=== PATIENT | female | born 1940 | race Caucasian/White ===

== ENCOUNTER 2018-06-17 16:18 | Emergency (ER) | payer MEDICARE, SELFPAY ==
[2018-06-17 16:22] VITALS: BP 141/87; PULSE 93; RESP 18; TEMP 36.5; O2SAT 94; BMI 20.2
[2018-06-17 18:06] LABS: Add Manual Diff / Slide Review NO; Basophils Percent Auto 0.3 % (0-2); Eosinophils Percent Auto 1.4 % (2-4); Hemoglobin 13.6 g/dL (12.0-16.0); Lymphocytes Percent Auto 26.8 % (25-40); Mean Corpuscular HGB Conc 33.9 % (30-36); Mean Corpuscular Hemoglobin 29.5 PG (26-34); Mean Corpuscular Volume 86.9 fL (80-100); Monocytes Percent Auto 7.6 % (3-14); Neutrophils Absolute Auto 3600 /uL (1500-7000); Neutrophils Percent Auto 63.9 % (50-75); Platelet Count 236 X10^3/uL (150-400); Red Cell Distribution Width 13.5 % (11.6-14.8); White Blood Cell Count 5.7 X10^3/uL (4.5-11.0)
--- NOTE | 2018-06-17 18:16 | ED_ITS ---
HPI - Abdominal Pain General Chief Complaint: Abdominal Pain Stated Complaint: Stated bleeding Time Seen by Provider: 06/17/18 17:45 Source: patient and family Mode of arrival: ambulatory Limitations: no limitations History of Present Illness HPI narrative: Patient is a 78-year-old female here with family for evaluation of ?leaking fluid. Patient states that this morning she started leaking fluid. At 1st she says that was from her ?bottom upon further questioning the patient's thinks that is coming from her vagina. She has had no change in her urine. No fevers. No abdominal pain. She had a hysterectomy done approximately 40 years ago. Does not have any pain. Has never had anything like this before. Has no symptoms consistent with stress incontinence. She states that the fluid is clear. Not bloody. Related Data Home Medications Medication Instructions Recorded Confirmed aspirin 81 mg PO DAILY 06/17/18 06/17/18 atenolol 25 mg PO DAILY 06/17/18 06/17/18 atorvastatin 5 mg PO DAILY 06/17/18 06/17/18 levothyroxine 50 mcg PO DAILY 06/17/18 06/17/18 losartan-hydrochlorothiazide 1 tab PO DAILY 06/17/18 06/17/18 omeprazole 20 mg PO QPM 06/17/18 06/17/18 Allergies Allergy/AdvReac Type Severity Reaction Status Date / Time No Known Drug Allergies Allergy Verified 06/17/18 16:21 Review of Systems Constitutional Denies fatigue ENT Ears, Nose, Mouth, and Throat: Denies dizziness Cardiovascular Denies chest pain and Denies dyspnea Respiratory Denies dyspnea Gastrointestinal Gastrointestinal: Denies abdominal pain Genitourinary Denies dysuria, Denies pelvic pain, Denies flank pain and Reports vaginal discharge Musculoskeletal Denies myalgias and Denies arthralgias Integumentary/Breasts Denies lesions and Denies rash Neurologic Denies behavioral changes, Denies confusion and Denies dizziness Psychiatric Denies behavioral changes and Denies confusion Endocrine Denies fatigue Hematologic/Lymphatic Denies easy bleeding and Denies easy bruising PFSH Medical History H/O: hysterectomy (Acute) History of hysterectomy (Acute) Hypertension (Acute) Hypothyroid (Acute) Social History Smoking Status: Never smoker Exam Initial Vital Signs Initial Vital Signs: Vital Signs Temperature 97.7 F 06/17/18 16:22 Pulse Rate 93 H 12/21/18 16:22 Respiratory Rate 18 06/17/18 16:22 Blood Pressure 141/87 H 06/17/18 16:22 Pulse Oximetry 94 06/17/18 16:22 Const General: cooperative, healthy appearing, comfortable, well developed, well groomed and No acute distress Orientation: alert, awake and oriented x3 HENMT Head: normal to inspection and normocephalic Resp Effort & Inspection: normal respiratory effort Auscultation: clear to auscultation bilaterally Cardio Rate: regular rate Rhythm: regular rhythm Pulses: radial pulses present GI Inspection: non-distended Palpation: soft, No firm and No tender Rectal Exam: visual inspection normal, normal sphincter tone, No hemorrhoids and No tenderness Other: Normal external female genitalia Pelvic exam shows no dehiscence of the suture line in the posterior vaginal vault. No fluid. No bleeding. Skin Lesions: no lesions Rashes: no rashes Neuro General: alert, awake and oriented x3 Extrem General: normal to inspection and capillary refill normal Psych Appearance: grossly normal and well kempt Course Orders Ordered: ED Orders 06/17/18 17:50 Complete Blood Count AUTO DIFF Stat Comprehensive Metabolic Panel Stat Lipase Stat Vital Signs - 8 hr 06/17/18 16:22 Temperature 97.7 F Pulse Rate 93 H Respiratory Rate 18 Blood Pressure 141/87 H Pulse Oximetry 94 MDM - Abdominal Pain Lab Data Attestation: I reviewed the patient's lab results. Result diagrams: 06/17/18 17:50 06/17/18 17:50 Lab Results 06/17/18 06/17/18 06/17/18 Range/Units 17:50 17:50 Unknown WBC 5.7 (4.5-11.0) X10^3/uL RBC 4.60 (4.0-5.2) X10^6/uL Hgb 13.6 (12.0-16.0) g/dL Hct 40.0 (36-46) % MCV 86.9 (80-100) fL MCH 29.5 (26-34) PG MCHC 33.9 (30-36) % RDW 13.5 (11.6-14.8) % Plt Count 236 (150-400) X10^3/uL Neut % (Auto) 63.9 (50-75) % Lymph % (Auto) 26.8 (25-40) % Cole % (Auto) 7.6 (3-14) % Eos % (Auto) 1.4 L (2-4) % Baso % (Auto) 0.3 (0-2) % Neut # (Auto) 3600 (4048-7775) /uL Sodium 145 (137-145) mmol/L Potassium 3.3 L (3.4-5.1) mmol/L Chloride 108 H (98-107) mmol/L Carbon Dioxide 27 (22-32) mmol/L BUN 19 H (7-17) mg/dL Creatinine 0.70 (0.52-1.04) mg/dL Estimated GFR > 60.0 (>60) mL/min BUN/Creatinine Ratio 27.1 H (6-22) Glucose 105 (80-110) mg/dL Calcium 9.7 (8.4-10.2) mg/dL Total Bilirubin 0.7 (0.2-1.3) mg/dL AST 33 (14-36) IU/L ALT 27 (9-52) IU/L Alkaline Phosphatase 97 (38-126) U/L Total Protein 7.2 (6.3-8.2) g/dL Albumin 4.1 (3.5-5.0) g/dL Globulin 3.1 (1.7-4.1) g/dL Albumin/Globulin Ratio 1.3 (1.0-2.8) Lipase 101 (23-300) U/L Urine Color Yellow Urine Appearance Clear Urine pH 7.5 (4.5-8.0) Ur Specific Roosevelt 1.020 (1.000-1.035) Urine Protein Negative (Negative) Urine Glucose (UA) Negative (Normal) g/dL Urine Ketones Negative (NEGATIVE) Urine Occult Blood Trace-intact (Negative) Urine Nitrate Negative (Negative) Urine Bilirubin Negative (NEGATIVE) Urine Urobilinogen 0.2 (0.2) E.U./dL Ur Leukocyte Esterase Negative (NEGATIVE) Urine RBC None seen (0-5/HPF) Urine WBC None seen (0-5/HPF) Urine Bacteria None seen (None) Ur Culture Indicated? Not Reportable Micro UA Comment Not Reportable MDM Narrative Medical decision making narrative: Patient with normal exam here in the emergency department. The symptoms do not appear to be coming from the vagina. There is no dehiscence in the surgical wound from her hysterectomy many years ago. No abnormal findings on the rectal exam. Urine shows no signs of urinary tract infection. Has no abdominal pain. Unsure as the exact etiology of the fluid. I do not feel like there is an emergent surgical condition. Will hold on CT scan for now. Patient was given return precautions. She and family both expressed understanding and agreement plan. Discharge Plan Departure Patient Disposition: Home Clinical Impression: Clear vaginal discharge Discharge Date/Time: 06/17/18 20:34 Interventions: ED Discharge Assessment Last Done: 06/17/18 20:33 Activity Restrictions/Additional Instructions: There were no abnormalities seen on the exam today. Your urine was clean today. Her electrolytes were unremarkable. I do recommend a barrier cream if the irritation becomes worse. I do recommend he follow up with her primary care doctor. Return to the emergency department for any new or worsening symptoms Prescriptions: No Action atorvastatin 10 mg tablet 5 mg PO DAILY RF: 0 atenolol 25 mg tablet 25 mg PO DAILY RF: 0 losartan-hydrochlorothiazide 100-25 mg tablet 1 tab PO DAILY RF: 0 levothyroxine 50 mcg tablet 50 mcg PO DAILY RF: 0 omeprazole 20 mg capsule,delayed release(DR/EC) 20 mg PO QPM RF: 0 aspirin 81 mg Tablet,Delayed Release (Dr/Ec) 81 mg PO DAILY RF: 0
[2018-06-17 18:19] LABS: Alanine Aminotransferase 27 IU/L (9-52); Albumin 4.1 g/dL (3.5-5.0); Albumin Globulin Ratio 1.3 (1.0-2.8); Alkaline Phosphatase 97 U/L (38-126); Aspartate Aminotransferase 33 IU/L (14-36); BUN Creatinine Ratio 27.1 (6-22); Bilirubin Total 0.7 mg/dL (0.2-1.3); Blood Urea Nitrogen 19 mg/dL (7-17); Calcium 9.7 mg/dL (8.4-10.2); Carbon Dioxide 27 mmol/L (22-32); Chloride 108 mmol/L (98-107); Estimated Glomerular Filt Rate > 60.0 mL/min (>60); Globulin 3.1 g/dL (1.7-4.1); Glucose 105 mg/dL (80-110); HEMOLYSIS < 15 (0-50); Lipase 101 U/L (23-300); Potassium 3.3 mmol/L (3.4-5.1); Sodium 145 mmol/L (137-145); Total Protein 7.2 g/dL (6.3-8.2)
[2018-06-17 19:21] LABS: Bacteria Urine None Seen; RBC Urine None Seen (0-5/HPF); WBC Urine None Seen (0-5/HPF)
[2018-06-17 19:22] LABS: Appearance Urine UA CLEAR; Bilirubin Urine UA NEGATIVE (NEGATIVE); Color Urine UA YELLOW; Glucose Urine UA NEGATIVE (Normal); Ketones Urine UA NEGATIVE (NEGATIVE); Leukocyte Esterase Urine UA NEGATIVE (NEGATIVE); Nitrite Urine UA NEGATIVE (Negative); Occult Blood Urine UA TRACE-INTACT (Negative); Protein Urine UA NEGATIVE (Negative); Urobilinogen Urine UA 0.2 E.U./dL (0.2); pH Urine UA 7.5 (4.5-8.0)
== END 2018-06-17 20:34 | disposition home or self-care (01) ==
PROVIDERS: Emergency Medicine; Emergency Provider Emergency Medicine
DX: N89.8 Other specified noninflammatory disorders of vagina (principal)
CPT/HCPCS: 36591; 80053; 81001; 83690; 85025; 99283